=== PATIENT | female | born 1985 | race Caucasian/White ===

== ENCOUNTER 2019-04-17 09:41 | Emergency (ER) | payer BC, SELFPAY ==
[2019-04-17 10:02] VITALS: BP 105/61; PULSE 97; RESP 16; TEMP 37.1; O2SAT 100
--- NOTE | 2019-04-17 10:37 | ED.EYEPROB ---
HPI - Eye Problem General Chief complaint: Eye Problems Stated complaint: FACIAL SWELLING/SINUS/HEADACHE Time Seen by Provider: 04/17/19 10:37 Source: patient Mode of arrival: ambulatory Limitations: no limitations History of Present Illness HPI Narrative: A 33 y/o female, who is a nonsmoker/nondrinker, presents to with c/o bilateral eye swelling since Friday (3 days ago). Pt notes that she has a cat at home but it does not sleep in the same room. Pt has been taking Zyrtec. She reports preceding anterior node/ neck soreness, rhinorrhea, and a CHAVIS for 1 week,eye drainage in the morning, but denies an earache, a cough, N/V/D, a wheeze, itching, a rash, and sneezing. Onset (ago): day(s) (3) Location: both eyes Eye Symptoms: other (swelling) Related Data Home Medications Medication Instructions Recorded Confirmed norethindrone 1 mg-ethinyl 1 tablet PO DAILY 01/26/19 04/17/19 estradiol 20 mcg (24)-iron 75 mg (4) tablet cetirizine-pseudoephedrine 1 tablet PO DAILY 04/17/19 04/17/19 [Zyrtec-D] Allergies Allergy/AdvReac Type Severity Reaction Status Date / Time No Known Allergies Allergy Unknown Unverified 04/17/19 10:01 Review of Systems Review of Systems: Narrative: General/Constitutional: Denies: weight loss,fever Eyes: Reports: bilateral eye swelling, drainage in the morning; Denies: Redness Ears/Nose/Throat: Reports: neck soreness, rhinorrhea; Denies: Epistaxis,ear discharge, earache, sneezing Respiratory: Denies: Hemoptysis, a cough, wheeze Gastrointestinal: Denies: N/V/D, Bleeding-rectal Skin: Denies: Lumps, eruption, itching, rash Neurologic: Reports: CHAVIS for 1 week; Denies: Focal Weakness,Sz Hematologic: Denies: Petechiae/Purpura Psychiatric: Denies: Suicidal ideation All systems reviewed & are unremarkable except as noted in HPI and below PMFSH Past Medical History Medical History (Updated 04/17/19 @ 10:55 by Dianna Nuñez) MVP (mitral valve prolapse) Seasonal allergies Surgical History Surgical History (Updated 04/17/19 @ 10:55 by Dianna Nuñez) Previous section Family History Family History Father Hypertension Grandparent Family history of malignant neoplasm Mother Hypertension Family history of chronic obstructive pulmonary disease Social History Social History (Updated 04/17/19 @ 10:56 by Dianna Nuñez) Smoking status: Never smoker Alcohol intake: never Comments PCP: Dr. Lopez At time of signature, agree with nursing past medical, surgical, social and family history. There is no relevant family history pertinent to the presenting complaint Exam Narrative: Exam Narrative: General Appearance: Well appearing, Well nourished EYE: PERRLA, EOMI, Lid-lacrimal: bilateral lid edema , Lens-nl, AC -deep, conjunctiva -only sl injected Ears: Auditory canal normal, TM normal Nose: Rhinorrhea, Mucousal erythema Mouth/Throat: MM moist, Uvula midline, Pharyngeal erythema Neck: Supple, No adenopathy Respiratory: No respiratory distress, Breath sounds equal, Clear to auscultation Cardiovascular: RRR, No JVD Musculoskeletal: Non tender, Normal strength Skin: Warm, Dry Neurological: A&O x3, CN II-XII intact Psychiatric: Normal mood, Normal affect Course Vital Signs Vital signs: Vital Signs Temperature 98.8 F 04/17/19 10:02 Pulse Rate 97 04/17/19 10:02 Respiratory Rate 16 04/17/19 10:02 Blood Pressure 105/61 04/17/19 10:02 Pulse Oximetry 100 04/17/19 10:02 Temperature 98.8 F 04/17/19 10:02 Pulse Rate 97 04/17/19 10:02 Respiratory Rate 16 04/17/19 10:02 Blood Pressure 105/61 04/17/19 10:02 Pulse Oximetry 100 04/17/19 10:02 Discharge Plan Discharge Clinical Impression: Blepharoconjunctivitis Qualifiers: Blepharoconjunctivitis type: unspecified Laterality: bilateral Qualified Code(s): H10.503 - Unspecified blepharoconjunctivitis, bilateral Vicky
== END 2019-04-17 10:59 | disposition home or self-care (01) ==
PROVIDERS: Emergency Provider Emergency Medicine; PCP Family Medicine
DX: H10.503 Unspecified blepharoconjunctivitis, bilateral (principal); I34.1 Nonrheumatic mitral (valve) prolapse
CPT/HCPCS: 99213; G0463

== ENCOUNTER 2020-03-27 06:54 | Outpatient (NON) | payer BC, SELFPAY ==
[2020-03-27 21:24] LABS: SARS-CoV-2 RNA PCR Negative
== END 2020-03-27 06:55 ==
LOC: ANHCOVIDDT 06:56
PROVIDERS: PCP Family Medicine; Visit Provider Physician Assistant Medical
DX: R68.89 Other general symptoms and signs (principal); Z20.822 Contact with and (suspected) exposure to COVID-19
CPT/HCPCS: C9803; U0003; U0005

== ENCOUNTER → 2020-09-20 16:12 | Outpatient (CLI) | payer BC, SELFPAY ==
--- NOTE | ~2020-09-20 | MM_ITS ---
EXAMINATION: MM screening fabiola BI w ayo HISTORY: Screening mammogram TECHNIQUE: Craniocaudal and mediolateral oblique 3-D tomosynthesis images were obtained and synthetic 2-D images were generated. CAD analysis was submitted and interpreted. COMPARISON: None, baseline BREAST PARENCHYMAL COMPOSITION: The breasts are heterogeneously dense, which may obscure small masses . FINDINGS: There is no evidence of suspicious mass, calcification, or architectural distortion to sugg est malignancy in either breast. There has been no suspicious interval change. IMPRESSION: 1. No mammographic evidence of malignancy. 2. Recommend routine screening mammography beginning at age 40. BI-RADS Category 1: Negative Reviewed, dictated and finalized at location A.
== END ==
PROVIDERS: PCP Family Medicine; Visit Provider Family Medicine
DX: Z12.31 Encounter for screening mammogram for malignant neoplasm of breast (principal)
CPT/HCPCS: 77063; 77067

== ENCOUNTER 2023-01-04 08:02 | Emergency (ER) | payer BC, SELFPAY ==
--- NOTE | 2023-01-04 08:05 | ED.URI ---
HPI - URI/Sore Throat General Chief Complaint: Upper Respiratory Infection Stated Complaint: Ear Infection;Sinus Infection Time Seen by Provider: 01/04/23 08:05 Source: patient, RN notes reviewed and old records reviewed Mode of arrival: ambulatory Limitations: no limitations History of Present Illness HPI Narrative: 37-year-old female presents to the [facility] with complaints of bilateral ear pain, worse on the left and sinus pain/ pressure. Symptoms started approximately 11-12 days ago Has been taking Claritin-D. Patient denies fevers. No chest pain. No shortness of breath. Onset (ago): week(s) (2) Related Data Allergies Allergy/AdvReac Type Severity Reaction Status Date / Time No Known Allergies Allergy Unknown Verified 01/04/23 08:12 Review of Systems Review of Systems: All systems reviewed & are unremarkable except as noted in HPI and below Constitutional: Constitutional: Reports no additional constitutional complaints Eyes: Eyes: Reports no additional eye complaints ENT: Reports as per HPI, Reports otalgia, Denies nasal discharge, Reports sinus pain and Reports sinus pressure Cardiovascular: Cardiovascular: Reports no additional cardiovascular complaints, Denies chest pain and Denies dyspnea Respiratory: Respiratory: Reports no additional respiratory complaints, Denies chest congestion, Denies cough and Denies dyspnea Gastrointestinal: Gastrointestinal: Reports no additional gastrointestinal complaints, Denies abdominal pain, Denies nausea and Denies vomiting Musculoskeletal: Musculoskeletal: Reports no additional musculoskeletal complaints Integumentary/Breasts: Skin/Breast: Reports system reviewed and no additional complaints, except as docu Neurologic: Reports system reviewed and no additional complaints, except as documented Psychiatric: Psychiatric: Reports no additional psychiatric complaints Allergic/Immunologic: Allergic/Immunologic: Reports no additional allergic/immunologic complaints [facility] [place] Past Medical History Medical History MVP (mitral valve prolapse) Seasonal allergies Tinea corporis Surgical History Surgical History Previous section Family History Family History Father Hypertension Grandparent Family history of malignant neoplasm Mother Hypertension Family history of chronic obstructive pulmonary disease Social History Social History Smoking status: Never smoker Alcohol intake: never Substance use: never Substance use type: does not use Lack of Transportation: No Lack of Food: Never True Current Housing: I Have Housing Concerned About Future Housing: No Difficulty Paying Gas/Electric Bills: No Difficulty Paying for Meds: No Currently Unemployed: No Education: Master's Degree or Higher Difficulty w/ Childcare or Family Care: No Comments At the time of my signature, I reviewed and agree with the nursing past medical, surgical, social, and family history. There is no relevant family history pertinent to the patient complaint. Exam Const: General: cooperative, healthy appearing, comfortable, no acute distress, well developed, alert and well nourished Nutritional Appearance: well nourished Orientation/consciousness: patient oriented x3 Limitations: no limitations HENMT: Head: normal to inspection Ears: hearing grossly normal bilaterally, external ears normal, EAC's normal, mastoids normal, no periauricular adenopathy and TM abnormal bulging on the left, wth effusion serous bilateral and with fluid behind the TM; with no loss of landmarks Face/Nose/Sinus: Normal external nose present, Normal nares present, Normal nasal mucous membranes and turbinates present, normal facial exam and face symmetric Face and sinus: normal facia
[2023-01-04 08:11] VITALS: BP 116/66; PULSE 79; RESP 16; TEMP 37; O2SAT 100
[2023-01-04 08:13] VITALS: BP 116/66; PULSE 79; RESP 16; TEMP 37; O2SAT 100
== END 2023-01-04 08:27 | disposition home or self-care (01) ==
PROVIDERS: Emergency Provider Nurse Practitioner; PCP Family Medicine
DX: J01.41 Acute recurrent pansinusitis (principal); H65.03 Acute serous otitis media, bilateral; I34.1 Nonrheumatic mitral (valve) prolapse
CPT/HCPCS: 99213; G0463

== ENCOUNTER 2024-02-04 08:07 | Outpatient (CLI) | payer BC, SELFPAY ==
[2024-02-04 20:28] LABS: Basophils Absolute Auto 0.1 K/mm3 (0.0-0.1); Basophils Percent Auto 0.9 % (0.2-1.2); Eosinophils Percent Auto 0.6 % (0-4.4); Hematocrit 38.9 % (37.0-47.0); Immature Granulocyte Absolute 0.01 K/mm3 (0.00-0.031); Immature Granulocyte Percent A 0.1 % (0-0.5); Lymphocytes Absolute Auto 2.77 K/mm3 (0.9-3.2); Lymphocytes Percent Auto 39.3 % (18.3-44.2); Mean Corpuscular HGB Conc 33.4 g/dl (32-36); Mean Corpuscular Volume 92.8 fl (80-100); Mean Platelet Volume 10.9 fl (7.4-10.4); Monocytes Absolute Auto 0.5 K/mm3 (0.1-0.6); Monocytes Percent Auto 6.4 % (2.6-8.5); Neutrophils Absolute Auto 3.7 K/mm3 (1.3-6.7); Neutrophils Percent Auto 52.7 % (45.5-73.1); Platelet Count Result 314 k/mm3 (150-375); Red Blood Count 4.19 M/mm3 (4.2-5.4); Red Cell Distribution Width 12.2 % (11.5-14.5)
[2024-02-04 21:18] LABS: Alanine Aminotransferase 12 U/L (6-35); Albumin Level 4.2 g/dL (3.5-5.1); Alkaline Phosphatase 73 U/L (38-126); Anion Gap 6 mmol/L (4-12); Aspartate Amino Transferase 28 U/L (14-36); Bilirubin,Total 1.2 mg/dL (0.2-1.3); Blood Urea Nitrogen 8 mg/dL (7-17); Calcium 8.8 mg/dL (8.4-10.2); Carbon Dioxide 27 mmol/L (22-30); Chloride 104 mmol/L (98-107); Cholesterol 215 mg/dL (0-200); Estimated Glomerular Filt Rate > 60; Glucose 86 mg/dL (65-110); HDL Direct 66 mg/dL; Potassium 4.3 mmol/L (3.4-5.0); Sodium 137 mmol/L (137-145); Triglycerides 85 mg/dL (<150)
[2024-02-04 21:29] LABS: LDL Cholesterol Direct 123 mg/dL
== END 2024-02-04 08:08 | disposition home or self-care (01) ==
LOC: ANHGOSHLAB 08:08
PROVIDERS: PCP Family Medicine; Visit Provider Family Medicine
DX: Z00.00 Encounter for general adult medical examination without abnormal findings (principal)
CPT/HCPCS: 36415; 80053; 80061; 84443; 85025

== ENCOUNTER 2024-07-28 12:19 | Outpatient (CLI) | payer BC, SELFPAY ==
--- NOTE | ~2024-07-28 | MM_ITS ---
EXAMINATION: MM screening fabiola BI w ayo HISTORY: Screening TECHNIQUE: Craniocaudal and mediolateral oblique 3-D tomosynthesis images were obtained and synthetic 2-D images were generated. CAD analysis was submitted and interpreted. COMPARISON: 09/20/2020 BREAST PARENCHYMAL COMPOSITION: Not dense: There are scattered areas of fibroglandular density. FINDINGS: There is no evidence of suspicious mass, calcification, or architectural distortion to sugg est malignancy in either breast. There has been no suspicious interval change. IMPRESSION: 1. No mammographic evidence of malignancy. 2. Recommend routine screening mammography in one year. BI-RADS Category 1: Negative Reviewed, dictated and finalized at location B.
== END 2024-07-28 12:20 | disposition home or self-care (01) ==
LOC: MICIMG 12:19
PROVIDERS: PCP Family Medicine; Visit Provider Family Medicine
DX: Z12.31 Encounter for screening mammogram for malignant neoplasm of breast (principal)
CPT/HCPCS: 77063; 77067

== ENCOUNTER 2024-12-23 10:02 | Outpatient (CLI) | payer BC, SELFPAY ==
--- OUTSIDE RECORDS SUMMARY | 2024-12-23 11:23 | XMS_ITS | Clinical Summary ---
Author Organization [facility] uMentioned Address [address] [place] [address] Care Team Providers Care Ui Developer Name Role Phone Vanesa Lopez MD Primary Care Provider [phone] Source Comments [facility] uMentioned,non-owned Affiliates and Associated Physician Practices is amultiple site organization consisting of ambulatory clinics and hospital sitesin [place], [place], [place] and [place]. This disclosure is being madepursuant to the Care Everywhere program and may not contain all information available regarding this patient. Last updated 17.[facility] uMentioned Allergies No known active allergies Medications * Be aware that medications may not be up to date on this document. Alwaysverify current medications with the patient. Norethindrone Acet-Ethinyl Est (JUNE03/29 PO) Acti ve azithromycin (ZITHROMAX) 250 MG tablet Take 2 tabs today, then 1 tab daily for next 4 days 6 tablet 04/22/2019 Active Active Problems No known active problems Social History Tobacco Use Types Packs/Day Years Used Date Smoking Tobacco: Never Smokeless Tobacco: Never Comments No Sex and Gender Information Value Date Recorded Sex Assigned at Not on file Legal Sex Female 7:08 AM [employer] Gender Identity Not on file Sexual Orientation Not on file Last Filed Vital Signs Vital Sign Reading Time Taken Comments Blood Pressure 122/78 04/22/2019 4:56 PM [employer] Pulse 100 04/22/2019 4:56 PM [employer] Temperature 36.9 C (98.4 F) 04/22/2019 4:56 PM [employer] Respiratory Rate 16 04/22/2019 4:56 PM [employer] Oxygen Saturation 98% 04/22/2019 4:56 PM [employer] Inhaled Oxygen Concentration - - Weight 65.8 kg (145 lb) 04/22/2019 4:56 PM [employer] Height 160 cm (5' 3) 04/22/2019 4:56 PM [employer] Body Mass Index 25.69 04/22/2019 4:56 PM [employer] Plan of Treatment Health Maintenance Due Date Last Done Comments LIPID TESTING 1983 MAMMOGRAM 1983 HIV SCREENING 06/04/1998 HEPATITIS C SCREENING 05/31/2001 DTAP/TDAP/TD VACCINES (1 - Tdap) 06/04/2002 HEPATITIS B VACCINE (1 of 3 - 19+ 3-dose series) 06/04/2002 HPV VACCINE (1 - 3-dose SCDM series) 06/04/2010 DEPRESSION SCREENING 03/10/2024 COVID-19 VACCINE ( season) 2024 11/09/2020, 05/16/2020 INFLUENZA VACCINE (#1) 2024 , 12/01/2018, 12/20/2017, Additional history exists ZOSTER VACCINE (1 of 2) 06/04/2033 HIB VACCINE Aged Out No longer eligi ble based on patient's age to complete this topic MENINGOCOCCAL (Group B) VACCINE SHARED DECISION-MAKING Aged Out No longer eligible based on patient's age to complete this topic MENINGOCOCCAL GROUPS A/C/Y/W VACCINE Aged Out No longer eligible based on patient's age to complete this topic PNEUMOCOCCAL VACCINE Aged Out No long er eligible based on patient's age to complete this topic Insurance [employer] Care Teams Ui Developer Relationship Specialty Start Date End Date Vanesa Lopez MD [address] [place] [id number] PCP - General Family Medicine 02/23/16
[2024-12-28 10:09] LABS: I006-IgE Cockroach, German <0.10 kU/L (Class 0); T006-IgE Cedar, Mountain 0.10 kU/L (Class 0/I); T007-IgE Oak, White <0.10 kU/L (Class 0); T008-IgE Elm, American <0.10 kU/L (Class 0); T015-IgE Ash, White <0.10 kU/L (Class 0); T022-IgE Pecan, Hickory <0.10 kU/L (Class 0); W001-IgE Ragweed, Short <0.10 kU/L (Class 0); W011-IgE Thistle, Russian <0.10 kU/L (Class 0); W014-IgE Pigweed, Common <0.10 kU/L (Class 0); W016-IgE Rough Marshelder <0.10 kU/L (Class 0)
== END 2024-12-23 10:03 | disposition home or self-care (01) ==
LOC: ANHGOSHLAB 10:03
PROVIDERS: PCP Family Medicine; Visit Provider Student in an Organized Health Care Education/Training Program
DX: J30.2 Other seasonal allergic rhinitis (principal)
CPT/HCPCS: 82785; 86003